=== PATIENT | male | born 1965 | race Two or more races ===

== ENCOUNTER 2018-04-06 12:15 | Inpatient (IN) | payer MEDICAID ==
[~2018-04-06] VITALS: Ht 172.7 cm; Wt 72.6 kg
--- NOTE | 2018-04-06 12:31 | Emergency Room Report ---
History of Present Illness General Chief Complaint: Altered Level of Consciousness Source: Medical Record Present Illness HPI This patient lives in SNF due to past CVA/hemiplegia and possibly TBI. Notes relate that patient is more agitated and has "exit-seeking behavior." Referred here. No trauma, no fever. Hx. limited due to prior stroke and language. However patient is not in any distress and is cooperative with phlebotomy, EKG. Allergies: Coded Allergies: No Known Allergies (Unverified , 04/06/18) Patient History Limited by: language barrier Nursing Documentation-H Hx Hypertension: Yes Hx Cerebrovascular Accident: Yes - traumatic brain injury Review of Systems Constitutional: Reports: no symptoms Eye: Reports: no symptoms ENT: Reports: no symptoms Respiratory: Reports: no symptoms Cardiovascular: Reports: no symptoms Gastrointestinal: Reports: no symptoms Genitourinary: Reports: no symptoms Musculoskeletal: Reports: no symptoms Skin: Reports: no symptoms Psychiatric: Reports: no symptoms Neurological: Reports: no symptoms Endocrine: Reports: no symptoms Hematologic/Lymphatic: Reports: no symptoms Allergic: Reports: no symptoms All Other Systems: limited Physical Exam Vital Signs Date Time Temp Pulse Resp B/P (MAP) Pulse Ox O2 Delivery O2 Flow Rate FiO2 04/06/18 12:06 97.6 76 16 187/100 98 Room Air 97.5 Sp02 EP Interpretation: reviewed, normal General Appearance: normal inspection, well appearing, no apparent distress, alert, GCS 15, non-toxic Head: normocephalic, atraumatic Eyes: bilateral eye normal inspection, bilateral eye PERRL, bilateral eye EOMI ENT: normal ENT inspection, hearing grossly normal, normal pharynx, no angioedema, normal voice, moist mucus membranes Neck: normal inspection, full range of motion, supple, no meningismus, no bony tend Respiratory: normal inspection, lungs clear, normal breath sounds, no rhonchi, no respiratory distress, no retraction, no accessory muscle use, no wheezing Cardiovascular #1: normal inspection, regular rate, rhythm, no edema Gastrointestinal: normal inspection, normal bowel sounds, non tender, soft, no mass, non-distended Musculoskeletal: gait/station normal, normal range of motion Neurologic: normal inspection, alert, oriented x3, responsive, other - left hemiplegia (chronic) Psychiatric: normal inspection, judgement/insight normal, memory normal Suicide Risk Assessment: Suicidal Ideation: No Had intent to initiate attempt: No Pt's plan for suicide attempt: No Has means to complete attempt: No Skin: normal inspection, normal color, no rash, warm/dry Medical Decision Making Reaction to Intervention: No change Diagnostic Impression: Primary Impression: Altered level of consciousness ER Course There is no acute abnorm on PE or vitals or labs. Pt. not uncomfortable. Pt. cooperative here. I think pt. may just be unhappy at [facility]. EKG Diagnostic Results Rate: normal Rhythm: NSR ST Segments: no acute changes Rhythm Strip Diag. Results Rhythm Strip Time: 14:37 EP Interpretation: yes Rhythm: NSR Chest X-Ray Diagnostic Results Chest X-Ray Diagnostic Results : Chest X-Ray Ordered: Yes # of Views/Limited/Complete: 1 View Indication: Chest Pain EP Interpretation: Yes PA Xray: Interpretation reviewed Interpretation: no consolidation, no effusion, no pneumothorax, no acute cardiopulmonary disease Impression: No acute disease Last Vital Signs Date Time Temp Pulse Resp B/P (MAP) Pulse Ox O2 Delivery O2 Flow Rate FiO2 04/06/18 12:06 97.6 76 16 187/100 98 Room Air 97.5 Disposition: HOME, SELF-CARE Condition: Stable Tariq Dao M.D. Apr 06, 2018 12:31
[2018-04-06 12:45] LABS: EOSINOPHILS % (AUTO) 3.1 % (0.0-3.0); HEMATOCRIT 38.6 % (42.0-52.0); HEMOGLOBIN 13.5 G/DL (14.2-18.0); LYMPHOCYTES % (AUTO) 22.9 % (20.0-45.0); MEAN CORPUSCULAR VOLUME 85 FL (80-99); MONOCYTES % (AUTO) 6.7 % (1.0-10.0); NEUTROPHILS % (AUTO) 66.3 % (45.0-75.0); PLATELET COUNT 300 K/UL (150-450); RED BLOOD COUNT 4.54 M/UL (4.70-6.10); RED CELL DISTRIBUTION WIDTH 10.8 % (11.6-14.8); WHITE BLOOD COUNT 7.2 K/UL (4.8-10.8)
[2018-04-06 12:58] LABS: ANION GAP 11 mmol/L (5-15); BLOOD UREA NITROGEN 18 mg/dL (7-18); CALCIUM 9.5 MG/DL (8.5-10.1); CARBON DIOXIDE 26 MMOL/L (21-32); CHLORIDE 103 MMOL/L (98-107); CREATININE 1.2 MG/DL (0.55-1.30); POTASSIUM 3.8 MMOL/L (3.5-5.1); SODIUM 140 MMOL/L (136-145)
--- NOTE | 2018-04-06 12:59 | Diagnostic Imaging Report ---
Indication: Pain Technique: XRAY Chest 1v Comparison: None Findings: Heart appears mildly enlarged however this may be exaggerated by low lung volumes and AP technique. Mediastinal contours are sharp. There is no definite focal airspace consolidation. Costophrenic sulci are sharp. No definite pneumothorax. No definite/displaced acute rib fracture identified. No acute osseous abnormality appreciated. IMPRESSION: Apparent cardiomegaly, possibly exaggerated by low lung volumes and AP technique. No focal airspace consolidation, pleural effusion or pneumothorax.
[2018-04-06 13:01] LABS: ALANINE AMINOTRANSFERASE 26 U/L (12-78); ALBUMIN 4.3 G/DL (3.4-5.0); ALBUMIN/GLOBULIN RATIO 1.1 (1.0-2.7); ALKALINE PHOSPHATASE 72 U/L (46-116); ASPARTATE AMINO TRANSFERASE 15 U/L (15-37); BILIRUBIN,TOTAL 0.5 MG/DL (0.2-1.0)
--- NOTE | 2018-04-06 13:20 | Diagnostic Imaging Report ---
Indication: Seizure Technique: Continuous helical CT scanning of the head was performed utilizing automated exposure control without intravenous contrast material. Axial and coronal reconstructions were obtained. Comparison: None CT dose: Total DLP 1903 mGycm; CTDI vol 0.2, 7 0.4, 28.2 mGy Findings: There is no acute intracranial hemorrhage, mass effect or cortical edema. There is encephalomalacia in the left calloway radiata/basal ganglia/insula and to a lesser extent left superior temporal lobe which is likely sequela of remote ischemia or trauma. The ventricles, cisterns and sulci are prominent consistent with mild atrophy. Visualized mastoid air cells and paranasal sinuses are unremarkable. No focal lesions of the bony calvarium or soft tissues of the scalp are seen. IMPRESSION: No evidence of acute intracranial hemorrhage, mass effect or cortical edema. Encephalomalacia centered in the left basal ganglia/calloway radiata likely related to chronic infarct. Correlate clinically. MRI may be obtained for more sensitive evaluation as clinically indicated. The CT scanner at [facility] is accredited by the [employer] and the scans are performed using protocols designed to limit radiation exposure to as low as reasonably achievable to attain images of sufficient resolution adequate for diagnostic evaluation.
[2018-04-06 13:49] VITALS: BP 164/96
[2018-04-06 16:24] VITALS: BP 180/94
[2018-04-06 18:04] VITALS: BP 154/96
[2018-04-06 19:41] LABS: APPEARANCE,URINE CLEAR; BILIRUBIN, URINE NEGATIVE (NEGATIVE); COLOR,URINE PALE YELLOW; GLUCOSE, URINE (UA) NEGATIVE (NEGATIVE); KETONES,URINE NEGATIVE (NEGATIVE); LEUKOCYTE ESTERASE ,URINE NEGATIVE (NEGATIVE); NITRITE,URINE NEGATIVE (NEGATIVE); PH,URINE 5 (4.5-8.0); PROTEIN,URINE 2+ (NEGATIVE); UROBILINOGEN,URINE NORMAL MG/DL (0.0-1.0)
[2018-04-06] MEDS ORDERED: ASPIRIN81 MG ORAL (19:51)
[2018-04-06] MEDS ORDERED: LABETALOL HCL300 MG ORAL (19:51)
[2018-04-06] MEDS ORDERED: MOM30 ML ORAL (19:51)
[2018-04-06] MEDS ORDERED: HYTRIN1 MG PO (19:51)
[2018-04-06] MEDS ORDERED: MULTI-DELYN237 ML ORAL (19:51)
[2018-04-06] MEDS ORDERED: TERAZOSIN HCL1 MG ORAL (19:51)
[2018-04-06] MEDS ORDERED: AMLODIPINE BESY10 MG ORAL (19:51)
[2018-04-06] MEDS ORDERED: ZANTAC150 MG ORAL (19:51)
[2018-04-06] MEDS ORDERED: LISINOPRIL20 MG ORAL (19:51)
[2018-04-06] MEDS ORDERED: ACETAMINOPHEN325 M1 ORAL (19:51)
[2018-04-06 20:00] VITALS: BP 176/106
[2018-04-06] MEDS ORDERED: Miralax 17gm pkt ORAL PRN (20:30)
[2018-04-06] MEDS ORDERED: dilTIAZem HCl 25mg/5ml Inj IV PRN (20:30)
[2018-04-06] MEDS ORDERED: Enalaprilat 2.5mg/2ml Inj IV PRN (20:30)
[2018-04-06] MEDS ORDERED: Nitroglycerin Subl 0.4mg tab SL PRN (20:30)
[2018-04-06] MEDS ORDERED: Labetalol 5mg/ml 20ml vial IV PRN ×2 (20:30→20:45)
[2018-04-06] MEDS ORDERED: Albuterol/Ipratropium 3ml neb HHN PRN (20:30)
--- NOTE | 2018-04-06 20:42 | Emergency Room Report ---
Physical Exam Vital Signs Date Time Temp Pulse Resp B/P (MAP) Pulse Ox O2 Delivery O2 Flow Rate FiO2 04/06/18 12:06 97.6 76 16 187/100 98 Room Air 97.5 Medical Decision Making Diagnostic Impression: Primary Impression: Altered level of consciousness Additional Impressions: FTT (failure to thrive) in adult Uncontrolled hypertension ER Course Patient initially seen and evaluated by Dr. Dao; please see her note for full history and physical During ED course patient's blood pressure was difficult to control. Patient's behavior is also difficult to control at the facility. Patient given clonidine here. Patient will be admitted to telemetry floor Patient will be admitted to Dr. Bond who accepted the patient Last Vital Signs Date Time Temp Pulse Resp B/P (MAP) Pulse Ox O2 Delivery O2 Flow Rate FiO2 04/06/18 20:14 Room Air 04/06/18 18:43 97.5 61 15 154/96 99 97.5 Status: improved Disposition: ADMITTED INPATIENT Condition: Serious Referrals: Emeka Bond DO (PCP) Patient Instructions: Altered Mental Status Wilder Fry MD Apr 06, 2018 20:42
[2018-04-06] MEDS: Labetalol 200mg tab ORAL SCH (21:59)
[2018-04-06] MEDS: Heparin 5000 units/ml inj SUBQ SCH (22:00)
[2018-04-06] MEDS ORDERED: HydrALAZINE 50mg tab ORAL SCH (22:00)
--- NOTE | 2018-04-06 22:37 | Consultation ---
History of Present Illness General Date patient seen: Apr 06, 2018 Time patient seen: 22:37 Chief Complaint: Altered Level of Consciousness Present Illness HPI 52 year old male with hx of psychiatric disorder, CVA, PEG, HTN, [facility] resident was transferred ER with CC of agitation and ALOC. Cardiology consulted to assist with blood pressure management. Allergies: Coded Allergies: No Known Allergies (Unverified , 04/06/18) Medication History Scheduled Amlodipine Besylate* (Amlodipine Besylate*), 10 MG ORAL DAILY, (Reported) Aspirin* (Aspirin*), 81 MG ORAL DAILY, (Reported) Labetalol Hcl* (Normodyne*), 600 MG ORAL BID, (Reported) Lisinopril (Lisinopril*), 20 MG ORAL DAILY, (Reported) Multivitamin Liquid* (Multi-Delyn*), 5 ML ORAL DAILY, (Reported) Ranitidine Hcl* (Zantac*), 150 MG ORAL Q12HR, (Reported) Terazosin HCl (Terazosin HCl), 1 MG PO DAILY, (Reported) Scheduled PRN Acetaminophen* (Acetaminophen 325MG Tablet*), 650 MG ORAL Q4H PRN for Mild Pain/ Temp > 100.5, (Reported) Magnesium Hydroxide (Milk of Magnesia), 30 ML ORAL HSPRN PRN for Constipation, ( Reported) Patient History Healthcare decision maker N Resuscitation status Full Code Advanced Directive on File Review of Systems Constitutional: Reports: no symptoms Eye: Reports: no symptoms ENT: Reports: no symptoms Respiratory: Reports: no symptoms Cardiovascular: Reports: no symptoms Gastrointestinal: Reports: no symptoms Genitourinary: Reports: no symptoms Musculoskeletal: Reports: no symptoms Skin: Reports: no symptoms Psychiatric: Reports: anxiety, emotional problems Neurological: Reports: no symptoms Endocrine: Reports: no symptoms Hematologic/Lymphatic: Reports: no symptoms Physical Exam General Appearance: no apparent distress, alert Lines, tubes and drains: peripheral HEENT: normocephalic, atraumatic Neck: non-tender, normal alignment, supple, normal inspection Respiratory/Chest: chest wall non-tender, lungs clear, normal breath sounds, no respiratory distress Cardiovascular/Chest: normal peripheral pulses, normal rate, regular rhythm Abdomen: normal bowel sounds, non tender Extremities: normal range of motion, non-tender Skin Exam: normal pigmentation Neurologic: supervisor cold rolling II-XII grossly normal, no motor/sensory deficits, abnormal gait Last 24 Hour Vital Signs Date Time Temp Pulse Resp B/P (MAP) Pulse Ox O2 Delivery O2 Flow Rate FiO2 04/06/18 21:59 176/106 04/06/18 21:59 66 176/106 04/06/18 20:14 Room Air 04/06/18 20:00 58 04/06/18 20:00 97.4 66 19 176/106 (129) 98 97.4 04/06/18 18:43 97.5 61 15 154/96 99 Room Air 97.5 04/06/18 18:04 97.5 61 15 154/96 99 Room Air 97.5 04/06/18 16:40 164/96 04/06/18 16:24 97.5 79 16 180/94 100 Room Air 97.5 04/06/18 13:49 97.5 72 16 164/96 99 Room Air 97.5 04/06/18 12:06 97.6 76 16 187/100 98 Room Air 97.5 Laboratory Tests Test 04/06/18 12:25 04/06/18 13:30 04/06/18 18:38 04/06/18 21:00 White Blood Count 7.2 K/UL (4.8-10.8) Red Blood Count 4.54 M/UL (4.70-6.10) L Hemoglobin 13.5 G/DL (14.2-18.0) L Hematocrit 38.6 % (42.0-52.0) L Mean Corpuscular Volume 85 FL (80-99) Mean Corpuscular Hemoglobin 29.6 PG (27.0-31.0) Mean Corpuscular Hemoglobin Concent 34.9 G/DL (32.0-36.0) Red Cell Distribution Width 10.8 % (11.6-14.8) L Platelet Count 300 K/UL (150-450) Mean Platelet Volume 5.7 FL (6.5-10.1) L Neutrophils (%) (Auto) 66.3 % (45.0-75.0) Lymphocytes (%) (Auto) 22.9 % (20.0-45.0) Monocytes (%) (Auto) 6.7 % (1.0-10.0) Eosinophils (%) (Auto) 3.1 % (0.0-3.0) H Basophils (%) (Auto) 1.0 % (0.0-2.0) Sodium Level 140 MMOL/L (136-145) Potassium Level 3.8 MMOL/L (3.5-5.1) Chloride Level 103 MMOL/L (98-107) Carbon Dioxide Level 26 MMOL/L (21-32) Anion Gap 11 mmol/L (5-15) Blood Urea Nitrogen 18 mg/dL (7-18) Creatinine 1.2 MG/DL (0.55-1.30) Estimat Glomerular Filtration Rate > 60 mL/min (>60) Glucose Level 153 MG/DL (74-106) H Calcium Level 9.5 MG/DL (8.5-10.1) Total Bilirubin 0.5 MG/DL (0.2-1.0) Aspartate Amino Transf (AST/SGOT) 15 U/L (15-37) Alanine Aminotransferase (ALT/SGPT) 26 U/L (12-78) Alkaline Phosphatase 72 U/L (46-116) Total Protein 8.1 G/DL (6.4-8.2) Albumin 4.3 G/DL (3.4-5.0) Globulin 3.8 g/dL Albumin/Globulin Ratio 1.1 (1.0-2.7) Prothrombin Time 10.1 SEC (9.30-11.50) Prothromb Time International Ratio 1.0 (0.9-1.1) Troponin I 0.017 ng/mL (0.000-0.056) 0.013 ng/mL (0.000-0.056) Urine Color Pale yellow Urine Appearance Clear Urine pH 5 (4.5-8.0) Urine Specific [place] 1.015 (1.005-1.035) Urine Protein 2+ (NEGATIVE) H Urine Glucose (UA) Negative (NEGATIVE) Urine Ketones Negative (NEGATIVE) Urine Blood Negative (NEGATIVE) Urine Nitrite Negative (NEGATIVE) Urine Bilirubin Negative (NEGATIVE) Urine Urobilinogen Normal MG/DL (0.0-1.0) Urine Leukocyte Esterase Negative (NEGATIVE) Urine RBC 0-2 /HPF (0 - 0) H Urine WBC 0 /HPF (0 - 0) Urine Squamous Epithelial Cells None /LPF (NONE/OCC) Urine Amorphous Sediment Few /LPF (NONE) H Urine Bacteria Occasional /HPF (NONE) Height (Feet): 5 Height (Inches): 8.00 Weight (Pounds): 160 Medications Current Medications Medications (Trade) Dose Ordered Sig/Fatou Route PRN Reason Start Time Stop Time Status Last Admin Dose Admin Acetaminophen (Tylenol) 650 mg Q4H PRN ORAL FEVER 04/06/18 20:30 05/06/18 20:29 Albuterol/ Ipratropium (Albuterol/ Ipratropium) 3 ml Q4H PRN HHN Shortness of Breath 04/06/18 20:30 04/11/18 20:29 Amlodipine Besylate (Norvasc) 10 mg DAILY ORAL 04/07/18 09:00 05/07/18 08:59 Diltiazem HCl (Cardizem) 10 mg Q1H PRN IV heart rate more than 120 04/06/18 20:30 05/06/18 20:29 Enalaprilat (Vasotec) 2.5 mg Q6H PRN IV sbp more than 160 04/06/18 20:30 05/06/18 20:29 Heparin Sodium (Porcine) (Heparin 5000 units/ml) 5,000 units EVERY 12 HOURS SUBQ 04/06/18 21:00 05/06/18 20:59 04/06/18 22:00 Hydralazine HCl (Apresoline) 50 mg Q8HR ORAL 04/06/18 22:00 05/06/18 21:59 04/06/18 21:59 Labetalol HCl (Normodyne) 20 mg Q1H PRN IV sbp more than 160 04/06/18 20:45 05/06/18 20:29 Labetalol HCl (Normodyne) 600 mg Q12H ORAL 04/06/18 21:00 05/06/18 20:59 04/06/18 21:59 Lisinopril (Prinivil) 20 mg DAILY ORAL 04/07/18 09:00 05/07/18 08:59 Nitroglycerin (Ntg) 0.4 mg Q5M PRN SL Prn Chest Pain 04/06/18 20:30 05/06/18 20:29 Ondansetron HCl (Zofran) 4 mg Q6H PRN IVP Nausea & Vomiting 04/06/18 20:30 05/06/18 20:29 Pantoprazole (Protonix) 40 mg DAILY ORAL 04/07/18 09:00 05/07/18 08:59 Polyethylene Glycol (Miralax) 17 gm DAILYPRN PRN ORAL Constipation 04/06/18 20:30 05/06/18 20:29 Temazepam (Restoril) 15 mg HSPRN PRN ORAL Insomnia 04/06/18 20:30 04/13/18 20:29 Terazosin HCl (Hytrin) 1 mg DAILY ORAL 04/07/18 09:00 05/07/18 08:59 Assessment/Plan Status: stable Assessment/Plan Assessment: (1) History of CVA (cerebrovascular accident) (2) Feeding by G-tube (3) Psychiatric disorder (4) Hypertensive urgency Plan: 1) BP controlled on Norvasc, Lisinopril, Hydralazine, Labetaolol, terazosin 2) Psych consult 3) Ok to transfer to med surg 4) Cardiac diet Joshua Zimmer M.D. Apr 06, 2018 22:37
[2018-04-07] VITALS: BP 149/88
[2018-04-07 04:00] VITALS: BP 149/95
[2018-04-07] MEDS: HydrALAZINE 50mg tab ORAL SCH ×3 (05:37→22:33)
[2018-04-07 06:24] LABS: BASOPHILS % (AUTO) 0.9 % (0.0-2.0); HEMATOCRIT 39.4 % (42.0-52.0); HEMOGLOBIN 13.6 G/DL (14.2-18.0); LYMPHOCYTES % (AUTO) 27.3 % (20.0-45.0); MEAN CORPUSCULAR VOLUME 85 FL (80-99); MONOCYTES % (AUTO) 6.7 % (1.0-10.0); NEUTROPHILS % (AUTO) 62.1 % (45.0-75.0); PLATELET COUNT 308 K/UL (150-450); RED BLOOD COUNT 4.64 M/UL (4.70-6.10); WHITE BLOOD COUNT 7.3 K/UL (4.8-10.8)
[2018-04-07 07:28] LABS: CHOLESTEROL 238 MG/DL (< 200); HDL CHOLESTEROL 54 MG/DL (40-60); TRIGLYCERIDES 138 MG/DL (30-150)
[2018-04-07 07:59] VITALS: BP 124/71
[2018-04-07] MEDS: Heparin 5000 units/ml inj SUBQ SCH ×3 (08:12→22:15)
[2018-04-07] MEDS: Labetalol 200mg tab ORAL SCH ×2 (08:14→21:35)
[2018-04-07] MEDS ORDERED: Terazosin 1mg cap ORAL SCH (09:00)
[2018-04-07] MEDS ORDERED: Lisinopril 20mg tab ORAL SCH ×2 (09:00)
[2018-04-07 12:00] VITALS: BP 122/71
--- NOTE | 2018-04-07 12:04 | Consultation ---
History of Present Illness General Date patient seen: Apr 07, 2018 Chief Complaint: Altered Level of Consciousness Present Illness HPI 52 year old male with hx of psychiatric disorder, CVA, PEG, [place] resident was [place] [facility] [place] with CC of agitation and ALOC. His BP was elevated and uncontrolled, he is admitted to Telemetry for further treatment. Allergies: Coded Allergies: No Known Allergies (Unverified , 04/06/18) Medication History Scheduled Amlodipine Besylate* (Amlodipine Besylate*), 10 MG ORAL DAILY, (Reported) Aspirin* (Aspirin*), 81 MG ORAL DAILY, (Reported) Labetalol Hcl* (Normodyne*), 600 MG ORAL BID, (Reported) Lisinopril (Lisinopril*), 20 MG ORAL DAILY, (Reported) Multivitamin Liquid* (Multi-Delyn*), 5 ML ORAL DAILY, (Reported) Ranitidine Hcl* (Zantac*), 150 MG ORAL Q12HR, (Reported) Terazosin HCl (Terazosin HCl), 1 MG PO DAILY, (Reported) Scheduled PRN Acetaminophen* (Acetaminophen 325MG Tablet*), 650 MG ORAL Q4H PRN for Mild Pain/ Temp > 100.5, (Reported) Magnesium Hydroxide (Milk of Magnesia), 30 ML ORAL HSPRN PRN for Constipation, ( Reported) Patient History Healthcare decision maker N Resuscitation status Full Code Advanced Directive on File Past Medical/Surgical History Past Medical/Surgical History: (1) History of CVA (cerebrovascular accident) (2) Feeding by G-tube (3) Psychiatric disorder Review of Systems All Other Systems: negative except mentioned in HPI Physical Exam General Appearance: WD/WN, no apparent distress Lines, tubes and drains: peripheral HEENT: normocephalic Neck: non-tender, normal alignment Respiratory/Chest: chest wall non-tender, lungs clear Cardiovascular/Chest: normal peripheral pulses, normal rate Abdomen: normal bowel sounds, non tender Genitourinary/Rectal: normal genital exam Extremities: normal range of motion Last 24 Hour Vital Signs Date Time Temp Pulse Resp B/P (MAP) Pulse Ox O2 Delivery O2 Flow Rate FiO2 04/07/18 08:14 82 124/71 04/07/18 08:10 82 124/71 04/07/18 08:09 124/71 04/07/18 08:00 79 04/07/18 07:59 98.1 82 16 124/71 (88) 98 98.1 04/07/18 07:33 Room Air 04/07/18 07:31 67 18 Room Air 21 04/07/18 05:37 149/95 04/07/18 04:00 66 04/07/18 04:00 98.1 73 16 149/95 (113) 97 98.1 04/07/18 00:00 97.6 75 20 149/88 (108) 97 97.6 04/07/18 00:00 65 04/06/18 21:59 176/106 04/06/18 21:59 66 176/106 04/06/18 20:14 Room Air 04/06/18 20:00 58 04/06/18 20:00 97.4 66 19 176/106 (129) 98 97.4 04/06/18 18:43 97.5 61 15 154/96 99 Room Air 97.5 04/06/18 18:04 97.5 61 15 154/96 99 Room Air 97.5 04/06/18 16:40 164/96 04/06/18 16:24 97.5 79 16 180/94 100 Room Air 97.5 04/06/18 13:49 97.5 72 16 164/96 99 Room Air 97.5 04/06/18 12:06 97.6 76 16 187/100 98 Room Air 97.5 Intake and Output 04/06/18 04/07/18 19:00 07:00 Intake Total 120 ml Balance 120 ml Intake Oral 120 ml # Voids 1 Laboratory Tests Test 04/06/18 12:25 04/06/18 13:30 04/06/18 18:38 04/06/18 21:00 White Blood Count 7.2 K/UL (4.8-10.8) Red Blood Count 4.54 M/UL (4.70-6.10) L Hemoglobin 13.5 G/DL (14.2-18.0) L Hematocrit 38.6 % (42.0-52.0) L Mean Corpuscular Volume 85 FL (80-99) Mean Corpuscular Hemoglobin 29.6 PG (27.0-31.0) Mean Corpuscular Hemoglobin Concent 34.9 G/DL (32.0-36.0) Red Cell Distribution Width 10.8 % (11.6-14.8) L Platelet Count 300 K/UL (150-450) Mean Platelet Volume 5.7 FL (6.5-10.1) L Neutrophils (%) (Auto) 66.3 % (45.0-75.0) Lymphocytes (%) (Auto) 22.9 % (20.0-45.0) Monocytes (%) (Auto) 6.7 % (1.0-10.0) Eosinophils (%) (Auto) 3.1 % (0.0-3.0) H Basophils (%) (Auto) 1.0 % (0.0-2.0) Sodium Level 140 MMOL/L (136-145) Potassium Level 3.8 MMOL/L (3.5-5.1) Chloride Level 103 MMOL/L (98-107) Carbon Dioxide Level 26 MMOL/L (21-32) Anion Gap 11 mmol/L (5-15) Blood Urea Nitrogen 18 mg/dL (7-18) Creatinine 1.2 MG/DL (0.55-1.30) Estimat Glomerular Filtration Rate > 60 mL/min (>60) Glucose Level 153 MG/DL (74-106) H Calcium Level 9.5 MG/DL (8.5-10.1) Total Bilirubin 0.5 MG/DL (0.2-1.0) Aspartate Amino Transf (AST/SGOT) 15 U/L (15-37) Alanine Aminotransferase (ALT/SGPT) 26 U/L (12-78) Alkaline Phosphatase 72 U/L (46-116) Total Protein 8.1 G/DL (6.4-8.2) Albumin 4.3 G/DL (3.4-5.0) Globulin 3.8 g/dL Albumin/Globulin Ratio 1.1 (1.0-2.7) Prothrombin Time 10.1 SEC (9.30-11.50) Prothromb Time International Ratio 1.0 (0.9-1.1) Troponin I 0.017 ng/mL (0.000-0.056) 0.013 ng/mL (0.000-0.056) Urine Color Pale yellow Urine Appearance Clear Urine pH 5 (4.5-8.0) Urine Specific [place] 1.015 (1.005-1.035) Urine Protein 2+ (NEGATIVE) H Urine Glucose (UA) Negative (NEGATIVE) Urine Ketones Negative (NEGATIVE) Urine Blood Negative (NEGATIVE) Urine Nitrite Negative (NEGATIVE) Urine Bilirubin Negative (NEGATIVE) Urine Urobilinogen Normal MG/DL (0.0-1.0) Urine Leukocyte Esterase Negative (NEGATIVE) Urine RBC 0-2 /HPF (0 - 0) H Urine WBC 0 /HPF (0 - 0) Urine Squamous Epithelial Cells None /LPF (NONE/OCC) Urine Amorphous Sediment Few /LPF (NONE) H Urine Bacteria Occasional /HPF (NONE) Test 04/07/18 05:30 White Blood Count 7.3 K/UL (4.8-10.8) Red Blood Count 4.64 M/UL (4.70-6.10) L Hemoglobin 13.6 G/DL (14.2-18.0) L Hematocrit 39.4 % (42.0-52.0) L Mean Corpuscular Volume 85 FL (80-99) Mean Corpuscular Hemoglobin 29.3 PG (27.0-31.0) Mean Corpuscular Hemoglobin Concent 34.5 G/DL (32.0-36.0) Red Cell Distribution Width 11.0 % (11.6-14.8) L Platelet Count 308 K/UL (150-450) Mean Platelet Volume 6.0 FL (6.5-10.1) L Neutrophils (%) (Auto) 62.1 % (45.0-75.0) Lymphocytes (%) (Auto) 27.3 % (20.0-45.0) Monocytes (%) (Auto) 6.7 % (1.0-10.0) Eosinophils (%) (Auto) 3.0 % (0.0-3.0) Basophils (%) (Auto) 0.9 % (0.0-2.0) Prothrombin Time 10.1 SEC (9.30-11.50) Prothromb Time International Ratio 1.0 (0.9-1.1) Activated Partial Thromboplast Time 28 SEC (23-33) C-Reactive Protein, Quantitative < 0.4 mg/dL (0.00-0.90) Triglycerides Level 138 MG/DL (30-150) Cholesterol Level 238 MG/DL (< 200) H LDL Cholesterol 157 mg/dL (<100) H HDL Cholesterol 54 MG/DL (40-60) Cholesterol/HDL Ratio 4.4 (3.3-4.4) Thyroid Stimulating Hormone (TSH) 1.006 uiU/mL (0.358-3.740) Height (Feet): 5 Height (Inches): 8.00 Weight (Pounds): 160 Medications Current Medications Medications (Trade) Dose Ordered Sig/Fatou Route PRN Reason Start Time Stop Time Status Last Admin Dose Admin Acetaminophen (Tylenol) 650 mg Q4H PRN ORAL FEVER 04/06/18 20:30 05/06/18 20:29 Albuterol/ Ipratropium (Albuterol/ Ipratropium) 3 ml Q4H PRN HHN Shortness of Breath 04/06/18 20:30 04/11/18 20:29 Amlodipine Besylate (Norvasc) 10 mg DAILY ORAL 04/07/18 09:00 05/07/18 08:59 04/07/18 08:10 Diltiazem HCl (Cardizem) 10 mg Q1H PRN IV heart rate more than 120 04/06/18 20:30 05/06/18 20:29 Enalaprilat (Vasotec) 2.5 mg Q6H PRN IV sbp more than 160 04/06/18 20:30 05/06/18 20:29 Heparin Sodium (Porcine) (Heparin 5000 units/ml) 5,000 units EVERY 12 HOURS SUBQ 04/06/18 21:00 05/06/18 20:59 04/07/18 08:12 Hydralazine HCl (Apresoline) 100 mg Q8HR ORAL 04/07/18 06:00 05/06/18 21:59 04/07/18 05:37 Labetalol HCl (Normodyne) 20 mg Q1H PRN IV sbp more than 160 04/06/18 20:45 05/06/18 20:29 Labetalol HCl (Normodyne) 600 mg Q12H ORAL 04/06/18 21:00 05/06/18 20:59 04/07/18 08:14 Lisinopril (Prinivil) 40 mg DAILY ORAL 04/07/18 09:00 05/07/18 08:59 04/07/18 08:09 Nitroglycerin (Ntg) 0.4 mg Q5M PRN SL Prn Chest Pain 04/06/18 20:30 05/06/18 20:29 Ondansetron HCl (Zofran) 4 mg Q6H PRN IVP Nausea & Vomiting 04/06/18 20:30 05/06/18 20:29 Pantoprazole (Protonix) 40 mg DAILY ORAL 04/07/18 09:00 05/07/18 08:59 04/07/18 08:10 Polyethylene Glycol (Miralax) 17 gm DAILYPRN PRN ORAL Constipation 04/06/18 20:30 05/06/18 20:29 Temazepam (Restoril) 15 mg HSPRN PRN ORAL Insomnia 04/06/18 20:30 04/13/18 20:29 Terazosin HCl (Hytrin) 1 mg DAILY ORAL 04/07/18 09:00 05/07/18 08:59 04/07/18 08:10 Assessment/Plan Problem List: (1) Uncontrolled hypertension ICD Codes: I10 - Essential (primary) hypertension SNOMED: 78714846, 48112706 (2) Psychiatric disorder ICD Codes: F99 - Mental disorder, not otherwise specified SNOMED: 11212666, 247295272 (3) Altered level of consciousness ICD Codes: R40.4 - Transient alteration of awareness SNOMED: 9516556 (4) History of CVA (cerebrovascular accident) ICD Codes: Z86.73 - Personal history of transient ischemic attack (TIA), and cerebral infarction without residual deficits SNOMED: 717338985 (5) Feeding by G-tube ICD Codes: Z93.1 - Gastrostomy status SNOMED: 494880202, 317745728 Assessment/Plan telemetry monitoring bp control psych to see swallow evaluation dvt prophylaxis. Justine Lopez MD Apr 07, 2018 12:04
--- NOTE | 2018-04-07 13:04 | Cardiology Progress Note ---
Assessment/Plan Status: stable Assessment/Plan Assessment: (1) History of CVA (cerebrovascular accident) (2) Feeding by G-tube (3) Psychiatric disorder (4) Hypertensive urgency Plan: 1) BP controlled on Norvasc, Lisinopril, Hydralazine, Labetaolol, terazosin 2) Psych consult 3) Ok to transfer to med surg 4) Cardiac diet Subjective Cardiovascular: Reports: no symptoms Respiratory: Reports: no symptoms Gastrointestinal/Abdominal: Reports: no symptoms Genitourinary: Reports: no symptoms Subjective No acute events, BP controlled, no chest pain/SOB, vitals stable Objective Last 24 Hour Vital Signs Date Time Temp Pulse Resp B/P (MAP) Pulse Ox O2 Delivery O2 Flow Rate FiO2 04/07/18 12:00 97.2 77 18 122/71 (88) 96 97.2 04/07/18 08:14 82 124/71 04/07/18 08:10 82 124/71 04/07/18 08:09 124/71 04/07/18 08:00 79 04/07/18 07:59 98.1 82 16 124/71 (88) 98 98.1 04/07/18 07:33 Room Air 04/07/18 07:31 67 18 Room Air 21 04/07/18 05:37 149/95 04/07/18 04:00 66 04/07/18 04:00 98.1 73 16 149/95 (113) 97 98.1 04/07/18 00:00 97.6 75 20 149/88 (108) 97 97.6 04/07/18 00:00 65 04/06/18 21:59 176/106 04/06/18 21:59 66 176/106 04/06/18 20:14 Room Air 04/06/18 20:00 58 04/06/18 20:00 97.4 66 19 176/106 (129) 98 97.4 04/06/18 18:43 97.5 61 15 154/96 99 Room Air 97.5 04/06/18 18:04 97.5 61 15 154/96 99 Room Air 97.5 04/06/18 16:40 164/96 04/06/18 16:24 97.5 79 16 180/94 100 Room Air 97.5 04/06/18 13:49 97.5 72 16 164/96 99 Room Air 97.5 General Appearance: no apparent distress, alert EENT: PERRL/EOMI, normal ENT inspection Neck: non-tender, normal alignment, supple, normal inspection, no JVD Rhythm: NSR Cardiovascular: normal peripheral pulses, normal rate, regular rhythm Respiratory/Chest: chest wall non-tender, lungs clear Abdomen: normal bowel sounds, non tender Extremities: normal range of motion, non-tender 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 normal, no motor/sensory deficits Intake and Output 04/06/18 04/07/18 19:00 07:00 Intake Total 120 ml Balance 120 ml Intake Oral 120 ml # Voids 1 Laboratory Tests Test 04/06/18 13:30 04/06/18 18:38 04/06/18 21:00 04/07/18 05:30 Prothrombin Time 10.1 SEC (9.30-11.50) 10.1 SEC (9.30-11.50) Prothromb Time International Ratio 1.0 (0.9-1.1) 1.0 (0.9-1.1) Troponin I 0.017 ng/mL (0.000-0.056) 0.013 ng/mL (0.000-0.056) Urine Color Pale yellow Urine Appearance Clear Urine pH 5 (4.5-8.0) Urine Specific [place] 1.015 (1.005-1.035) Urine Protein 2+ (NEGATIVE) H Urine Glucose (UA) Negative (NEGATIVE) Urine Ketones Negative (NEGATIVE) Urine Blood Negative (NEGATIVE) Urine Nitrite Negative (NEGATIVE) Urine Bilirubin Negative (NEGATIVE) Urine Urobilinogen Normal MG/DL (0.0-1.0) Urine Leukocyte Esterase Negative (NEGATIVE) Urine RBC 0-2 /HPF (0 - 0) H Urine WBC 0 /HPF (0 - 0) Urine Squamous Epithelial Cells None /LPF (NONE/OCC) Urine Amorphous Sediment Few /LPF (NONE) H Urine Bacteria Occasional /HPF (NONE) White Blood Count 7.3 K/UL (4.8-10.8) Red Blood Count 4.64 M/UL (4.70-6.10) L Hemoglobin 13.6 G/DL (14.2-18.0) L Hematocrit 39.4 % (42.0-52.0) L Mean Corpuscular Volume 85 FL (80-99) Mean Corpuscular Hemoglobin 29.3 PG (27.0-31.0) Mean Corpuscular Hemoglobin Concent 34.5 G/DL (32.0-36.0) Red Cell Distribution Width 11.0 % (11.6-14.8) L Platelet Count 308 K/UL (150-450) Mean Platelet Volume 6.0 FL (6.5-10.1) L Neutrophils (%) (Auto) 62.1 % (45.0-75.0) Lymphocytes (%) (Auto) 27.3 % (20.0-45.0) Monocytes (%) (Auto) 6.7 % (1.0-10.0) Eosinophils (%) (Auto) 3.0 % (0.0-3.0) Basophils (%) (Auto) 0.9 % (0.0-2.0) Activated Partial Thromboplast Time 28 SEC (23-33) C-Reactive Protein, Quantitative < 0.4 mg/dL (0.00-0.90) Triglycerides Level 138 MG/DL (30-150) Cholesterol Level 238 MG/DL (< 200) H LDL Cholesterol 157 mg/dL (<100) H HDL Cholesterol 54 MG/DL (40-60) Cholesterol/HDL Ratio 4.4 (3.3-4.4) Thyroid Stimulating Hormone (TSH) 1.006 uiU/mL (0.358-3.740) Joshua iZmmer M.D. Apr 07, 2018 13:04
[2018-04-07 16:00] VITALS: BP 104/65
[2018-04-07 20:00] VITALS: BP 126/83
[2018-04-07] MEDS ORDERED: Nitroglycerin Subl 0.4mg tab SL PRN (22:15)
[2018-04-07] MEDS ORDERED: dilTIAZem HCl 25mg/5ml Inj IV PRN (22:30)
[2018-04-07] MEDS ORDERED: Labetalol 5mg/ml 20ml vial IV PRN (22:45)
--- NOTE | 2018-04-07 22:45 | History and Physical Report ---
DATE OF ADMISSION: 04/06/2018 TIME SEEN: 1 p.m. CONSULTANTS: 1. Justine Lopez M.D. 2. . 3. London Snider M.D. CHIEF COMPLAINT: Altered mental status, failure to thrive, agitation, hypertensive urgency, psych history. BRIEF HISTORY: This 52-year-old male from [facility] presented with the above-mentioned diagnoses. Blood pressure was quite elevated 200/110. The patient came to [facility], diagnosed the above, admitted to telemetry for further care. Currently, calm in bed, slightly confused, not talking much. REVIEW OF SYSTEMS: Unavailable. PAST MEDICAL HISTORY: Hypertension, agitation, encephalopathy, CVA, failure to thrive. PAST SURGICAL HISTORY: None. MEDICATIONS: Norvasc, Hytrin, Protonix, Prinivil, Apresoline, Normodyne, heparin, albuterol, enalapril, , Zofran. ALLERGIES: Denies. SOCIAL HISTORY: No smoking. Positive alcohol. No intravenous drug abuse. FAMILY HISTORY: Noncontributory. OBJECTIVE: GENERAL: Calm in bed, confused, not talking much. VITAL SIGNS: Temperature is 97 degrees, pulse 77, respiratory rate 18, blood pressure 122/71. CARDIOVASCULAR: No murmur. LUNGS: Distant and clear. ABDOMEN: Bowel sounds positive. Nontender and nondistented EXTREMITIES: No cyanosis, clubbing, or edema. NEURO: The patient moves all extremities, slightly weak. LABORATORY DATA: Hemoglobin 13.6 otherwise CBC is normal. BMP show glucose is 153 and cholesterol 237. Troponin 0.017 and 0.013. INR is 1.0 and PTT 28. Urinalysis is 2+ protein. ASSESSMENT: 1. Altered mental status. 2. Failure to thrive. 3. Agitation. 4. CVA. 5. Hypertensive urgency. 6. Diabetes. 7. Encephalopathy. 8. Psych history. PLAN: 1. OT/PT. 2. Dietary evaluation. 3. CBC and BMP in morning. 4. Blood pressure and pain control. 5. Psychiatric treatment. 6. Transfer to psych if cleared. 7. We will continue to follow the patient. Emeka Bond D.O. DR: Catrina JOB#: [id number] CC:
[2018-04-08] VITALS: BP 127/78
[2018-04-08] MEDS ORDERED: Albuterol/Ipratropium 3ml neb HHN PRN (00:30)
[2018-04-08] MEDS ORDERED: Enalaprilat 2.5mg/2ml Inj IV PRN (02:30)
[2018-04-08 04:00] VITALS: BP 130/70
[2018-04-08] MEDS: HydrALAZINE 50mg tab ORAL SCH ×4 (05:33→21:38)
[2018-04-08 08:21] VITALS: BP 110/63
[2018-04-08] MEDS: Heparin 5000 units/ml inj SUBQ SCH ×2 (08:23→21:38)
[2018-04-08] MEDS: Lisinopril 20mg tab ORAL SCH (08:24)
[2018-04-08] MEDS: Terazosin 1mg cap ORAL SCH (08:24)
[2018-04-08] MEDS: Labetalol 200mg tab ORAL SCH ×2 (08:24→21:36)
--- NOTE | 2018-04-08 10:44 | General Progress Note ---
Assessment/Plan Problem List: (1) Altered mental status ICD Codes: R41.82 - Altered mental status, unspecified SNOMED: 474552156 (2) FTT (failure to thrive) in adult ICD Codes: R62.7 - Adult failure to thrive SNOMED: 890386943 (3) Psychiatric disorder ICD Codes: F99 - Mental disorder, not otherwise specified SNOMED: 25838666, 739447389 (4) History of CVA (cerebrovascular accident) ICD Codes: Z86.73 - Personal history of transient ischemic attack (TIA), and cerebral infarction without residual deficits SNOMED: 711132407 (5) Uncontrolled hypertension ICD Codes: I10 - Essential (primary) hypertension SNOMED: 12725869, 93569493 Status: stable, progressing Assessment/Plan ot pt diet bp bs control cbc bmp am psyc transfer Subjective Constitutional: Reports: weakness Allergies: Coded Allergies: No Known Allergies (Unverified , 04/06/18) All Systems: reviewed and negative except above Subjective confused in bed Objective Last 24 Hour Vital Signs Date Time Temp Pulse Resp B/P (MAP) Pulse Ox O2 Delivery O2 Flow Rate FiO2 04/08/18 08:24 110/63 04/08/18 08:24 72 110/63 04/08/18 08:24 72 110/63 04/08/18 08:21 97.0 72 18 110/63 (79) 97 97.0 04/08/18 05:33 128/73 04/08/18 04:00 97.2 77 18 130/70 (90) 97 97.2 04/08/18 00:00 97.1 74 17 127/78 (94) 98 97.1 04/07/18 22:33 138/86 04/07/18 21:35 71 126/83 04/07/18 21:00 Room Air 04/07/18 20:00 98.1 71 20 126/83 (97) 97 98.1 04/07/18 20:00 73 04/07/18 19:30 70 18 Room Air 21 04/07/18 16:00 69 04/07/18 16:00 98.1 79 20 104/65 (78) 97 98.1 04/07/18 13:28 122/71 04/07/18 12:00 74 04/07/18 12:00 97.2 77 18 122/71 (88) 96 97.2 Intake and Output 04/07/18 04/08/18 19:00 07:00 Intake Total 720 ml 360 ml Balance 720 ml 360 ml Intake Oral 720 ml 360 ml # Voids 2 2 Laboratory Tests 04/07/18 20:25: Troponin I 0.002 Height (Feet): 5 Height (Inches): 8.00 Weight (Pounds): 160 General Appearance: lethargic EENT: normal ENT inspection Neck: normal alignment Cardiovascular: normal peripheral pulses, normal rate, regular rhythm Respiratory/Chest: chest wall non-tender, lungs clear, normal breath sounds Abdomen: normal bowel sounds, non tender, soft Extremities: normal inspection Edema: no edema noted Arm (L), no edema noted Arm (R), no edema noted Leg (L), no edema noted Leg (R), no edema noted Pedal (L), no edema noted Pedal (R), no edema noted Generalized Neurologic: motor weakness Skin: normal pigmentation, warm/dry Emeka Bond DO Apr 08, 2018 10:44
--- NOTE | 2018-04-08 11:27 | Pulmonology Progress Note ---
Assessment/Plan Problems: (1) Uncontrolled hypertension (2) Psychiatric disorder (3) Altered level of consciousness (4) History of CVA (cerebrovascular accident) (5) Feeding by G-tube Assessment/Plan doing better bp better controlled tolerating feeding dc planning Subjective ROS Limited/Unobtainable: No Constitutional: Reports: no symptoms Respiratory: Reports: no symptoms Allergies: Coded Allergies: No Known Allergies (Unverified , 04/06/18) Objective Last 24 Hour Vital Signs Date Time Temp Pulse Resp B/P (MAP) Pulse Ox O2 Delivery O2 Flow Rate FiO2 04/08/18 11:22 75 20 Room Air 21 04/08/18 08:24 110/63 04/08/18 08:24 72 110/63 04/08/18 08:24 72 110/63 04/08/18 08:21 97.0 72 18 110/63 (79) 97 97.0 04/08/18 05:33 128/73 04/08/18 04:00 97.2 77 18 130/70 (90) 97 97.2 04/08/18 00:00 97.1 74 17 127/78 (94) 98 97.1 04/07/18 22:33 138/86 04/07/18 21:35 71 126/83 04/07/18 21:00 Room Air 04/07/18 20:00 98.1 71 20 126/83 (97) 97 98.1 04/07/18 20:00 73 04/07/18 19:30 70 18 Room Air 21 04/07/18 16:00 69 04/07/18 16:00 98.1 79 20 104/65 (78) 97 98.1 04/07/18 13:28 122/71 04/07/18 12:00 74 04/07/18 12:00 97.2 77 18 122/71 (88) 96 97.2 Intake and Output 04/07/18 04/08/18 19:00 07:00 Intake Total 720 ml 360 ml Balance 720 ml 360 ml Intake Oral 720 ml 360 ml # Voids 2 2 General Appearance: WD/WN HEENT: normocephalic, atraumatic Respiratory/Chest: chest wall non-tender, lungs clear, normal breath sounds Cardiovascular: normal peripheral pulses, normal rate, regular rhythm Abdomen: normal bowel sounds, soft, non tender Genitourinary: normal external genitalia Extremities: no clubbing 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 Complete 04/06/18 19:08 Rectum VRE Culture - Final NO VANCOMYCIN RESISTANT ENTEROCOCCUS ... Complete 04/06/18 19:08 Rectum - Final NO CARBAPENEM-RESISTANT ENTEROBACTERI... Complete Laboratory Tests 04/07/18 20:25: Troponin I 0.002 Current Medications Medications (Trade) Dose Ordered Sig/Fatou Route PRN Reason Start Time Stop Time Status Last Admin Dose Admin Acetaminophen (Tylenol) 650 mg Q4H PRN ORAL FEVER 04/08/18 00:30 05/06/18 20:29 Albuterol/ Ipratropium (Albuterol/ Ipratropium) 3 ml Q4H PRN HHN Shortness of Breath 04/08/18 00:30 04/11/18 20:29 Amlodipine Besylate (Norvasc) 10 mg DAILY ORAL 04/08/18 09:00 05/07/18 08:59 Heparin Sodium (Porcine) (Heparin 5000 units/ml) 5,000 units EVERY 12 HOURS SUBQ 04/07/18 22:15 05/06/18 20:59 04/08/18 08:23 Hydralazine HCl (Apresoline) 100 mg Q8HR ORAL 04/07/18 22:15 05/06/18 21:59 04/08/18 05:33 Labetalol HCl (Normodyne) 600 mg Q12H ORAL 04/08/18 09:00 05/06/18 20:59 Lisinopril (Prinivil) 40 mg DAILY ORAL 04/08/18 09:00 05/07/18 08:59 Nitroglycerin (Ntg) 0.4 mg Q5M PRN SL Prn Chest Pain 04/07/18 22:15 05/06/18 20:29 Ondansetron HCl (Zofran) 4 mg Q6H PRN IVP Nausea & Vomiting 04/08/18 02:30 05/06/18 20:29 Pantoprazole (Protonix) 40 mg DAILY ORAL 04/08/18 09:00 05/07/18 08:59 04/08/18 08:20 Polyethylene Glycol (Miralax) 17 gm DAILYPRN PRN ORAL Constipation 04/08/18 20:30 05/06/18 20:29 Temazepam (Restoril) 15 mg HSPRN PRN ORAL Insomnia 04/08/18 20:30 04/13/18 20:29 Terazosin HCl (Hytrin) 1 mg DAILY ORAL 04/08/18 09:00 05/07/18 08:59 Justine Lopez MD Apr 08, 2018 11:27
[2018-04-08 11:40] VITALS: BP 130/70
--- NOTE | 2018-04-08 12:33 | Cardiology Progress Note ---
Assessment/Plan Status: stable, progressing Assessment/Plan Assessment: (1) History of CVA (cerebrovascular accident) (2) Feeding by G-tube (3) Psychiatric disorder (4) Hypertensive urgency Plan: 1) BP controlled on Norvasc, Lisinopril, Hydralazine, Labetaolol, terazosin 2) Psych consult 3) Start lipitor 4) Cardiac diet 5) Ok to discharge Subjective Cardiovascular: Reports: no symptoms Respiratory: Reports: no symptoms Gastrointestinal/Abdominal: Reports: no symptoms Genitourinary: Reports: no symptoms Subjective No acute events, BP controlled, no chest pain/SOB, vitals stable, tolerating PO Lipid panel LDL elevated. Objective Last 24 Hour Vital Signs Date Time Temp Pulse Resp B/P (MAP) Pulse Ox O2 Delivery O2 Flow Rate FiO2 04/08/18 11:40 97.0 74 18 130/70 (90) 97 97.0 04/08/18 11:22 75 20 Room Air 21 04/08/18 08:24 110/63 04/08/18 08:24 72 110/63 04/08/18 08:24 72 110/63 04/08/18 08:21 97.0 72 18 110/63 (79) 97 97.0 04/08/18 05:33 128/73 04/08/18 04:00 97.2 77 18 130/70 (90) 97 97.2 04/08/18 00:00 97.1 74 17 127/78 (94) 98 97.1 04/07/18 22:33 138/86 04/07/18 21:35 71 126/83 04/07/18 21:00 Room Air 04/07/18 20:00 98.1 71 20 126/83 (97) 97 98.1 04/07/18 20:00 73 04/07/18 19:30 70 18 Room Air 21 04/07/18 16:00 69 04/07/18 16:00 98.1 79 20 104/65 (78) 97 98.1 04/07/18 13:28 122/71 General Appearance: no apparent distress, alert EENT: PERRL/EOMI, normal ENT inspection, pharynx normal Neck: non-tender, normal alignment, supple, normal inspection Rhythm: NSR Cardiovascular: normal peripheral pulses, normal rate, regular rhythm Respiratory/Chest: chest wall non-tender, lungs clear Abdomen: normal bowel sounds, non tender Extremities: normal range of motion, non-tender 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 Complete 04/06/18 19:08 Rectum VRE Culture - Final NO VANCOMYCIN RESISTANT ENTEROCOCCUS ... Complete 04/06/18 19:08 Rectum - Final NO CARBAPENEM-RESISTANT ENTEROBACTERI... Complete Joshua Zimmer M.D. Apr 08, 2018 12:33
[2018-04-08 16:07] VITALS: BP 130/76
[2018-04-08 20:00] VITALS: BP 144/89
[2018-04-08] MEDS ORDERED: Miralax 17gm pkt ORAL PRN (20:30)
[2018-04-08] MEDS ORDERED: Atorvastatin 20mg tab ORAL SCH (21:00)
[2018-04-09] VITALS: BP 144/85
[2018-04-09 04:00] VITALS: BP 150/94
[2018-04-09] MEDS: HydrALAZINE 50mg tab ORAL SCH ×2 (06:49→14:48)
[2018-04-09 08:09] VITALS: BP 147/94
[2018-04-09 08:19] LABS: BASOPHILS % (AUTO) 1.2 % (0.0-2.0); EOSINOPHILS % (AUTO) 3.6 % (0.0-3.0); HEMATOCRIT 38.8 % (42.0-52.0); HEMOGLOBIN 12.9 G/DL (14.2-18.0); LYMPHOCYTES % (AUTO) 24.5 % (20.0-45.0); MEAN CORPUSCULAR VOLUME 85 FL (80-99); MONOCYTES % (AUTO) 7.2 % (1.0-10.0); NEUTROPHILS % (AUTO) 63.6 % (45.0-75.0); PLATELET COUNT 295 K/UL (150-450); RED BLOOD COUNT 4.56 M/UL (4.70-6.10); RED CELL DISTRIBUTION WIDTH 10.7 % (11.6-14.8); WHITE BLOOD COUNT 6.9 K/UL (4.8-10.8)
[2018-04-09] MEDS: Terazosin 1mg cap ORAL SCH (08:20)
[2018-04-09] MEDS: Lisinopril 20mg tab ORAL SCH (08:20)
[2018-04-09] MEDS: Heparin 5000 units/ml inj SUBQ SCH (08:20)
[2018-04-09] MEDS: Labetalol 200mg tab ORAL SCH (08:23)
[2018-04-09 08:32] LABS: ANION GAP 13 mmol/L (5-15); BLOOD UREA NITROGEN 24 mg/dL (7-18); CALCIUM 8.9 MG/DL (8.5-10.1); CARBON DIOXIDE 23 MMOL/L (21-32); CHLORIDE 105 MMOL/L (98-107); CREATININE 1.3 MG/DL (0.55-1.30); POTASSIUM 3.9 MMOL/L (3.5-5.1); SODIUM 141 MMOL/L (136-145)
--- NOTE | 2018-04-09 09:53 | General Progress Note ---
Assessment/Plan Problem List: (1) Altered mental status ICD Codes: R41.82 - Altered mental status, unspecified SNOMED: 557309987 (2) FTT (failure to thrive) in adult ICD Codes: R62.7 - Adult failure to thrive SNOMED: 882581701 (3) Psychiatric disorder ICD Codes: F99 - Mental disorder, not otherwise specified SNOMED: 87851268, 836950284 (4) History of CVA (cerebrovascular accident) ICD Codes: Z86.73 - Personal history of transient ischemic attack (TIA), and cerebral infarction without residual deficits SNOMED: 713591795 (5) Uncontrolled hypertension ICD Codes: I10 - Essential (primary) hypertension SNOMED: 06882809, 31768569 Status: stable, progressing Assessment/Plan ot pt diet bp bs control cbc bmp am psyc transfer vs dc plan snf if clear by all Subjective Constitutional: Reports: weakness Allergies: Coded Allergies: No Known Allergies (Unverified , 04/06/18) All Systems: reviewed and negative except above Subjective confused in bed Objective Last 24 Hour Vital Signs Date Time Temp Pulse Resp B/P (MAP) Pulse Ox O2 Delivery O2 Flow Rate FiO2 04/09/18 08:23 73 147/94 04/09/18 08:20 147/94 04/09/18 08:20 73 147/94 04/09/18 08:09 97.8 73 18 147/94 (111) 96 97.8 04/09/18 06:49 150/94 04/09/18 04:00 97.5 75 20 150/94 (112) 97 97.5 04/09/18 00:00 97.9 87 18 144/85 (104) 98 97.9 04/08/18 21:38 144/89 04/08/18 21:36 81 144/89 04/08/18 21:00 Room Air 04/08/18 20:00 98.5 81 20 144/89 (107) 96 98.5 04/08/18 19:16 76 20 Room Air 21 04/08/18 16:07 97.6 79 18 130/76 (94) 95 97.6 04/08/18 14:02 130/70 04/08/18 11:40 97.0 74 18 130/70 (90) 97 97.0 04/08/18 11:22 75 20 Room Air 21 Intake and Output 04/08/18 04/09/18 19:00 07:00 Intake Total 840 ml Balance 840 ml Intake Oral 840 ml # Voids 2 3 # Bowel Movements 1 Laboratory Tests 04/09/18 08:05: White Blood Count 6.9, Red Blood Count 4.56L, Hemoglobin 12.9L, Hematocrit 38.8L , Mean Corpuscular Volume 85, Mean Corpuscular Hemoglobin 28.4, Mean Corpuscular Hemoglobin Concent 33.4, Red Cell Distribution Width 10.7L, Platelet Count 295, Mean Platelet Volume 5.6L, Neutrophils (%) (Auto) 63.6, Lymphocytes (%) (Auto) 24.5, Monocytes (%) (Auto) 7.2, Eosinophils (%) (Auto) 3.6H, Basophils (%) (Auto) 1.2, Sodium Level 141, Potassium Level 3.9, Chloride Level 105, Carbon Dioxide Level 23, Anion Gap 13, Blood Urea Nitrogen 24H, Creatinine 1.3, Estimat Glomerular Filtration Rate 58.0, Glucose Level 134H, Calcium Level 8.9 Height (Feet): 5 Height (Inches): 8.00 Weight (Pounds): 160 General Appearance: lethargic, confused EENT: normal ENT inspection Neck: normal alignment Cardiovascular: normal peripheral pulses, normal rate, regular rhythm Respiratory/Chest: chest wall non-tender, lungs clear, normal breath sounds Abdomen: normal bowel sounds, non tender, soft Extremities: normal inspection Edema: no edema noted Arm (L), no edema noted Arm (R), no edema noted Leg (L), no edema noted Leg (R), no edema noted Pedal (L), no edema noted Pedal (R), no edema noted Generalized Neurologic: motor weakness Skin: normal pigmentation, warm/dry Emeka Bond DO Apr 09, 2018 09:53
[2018-04-09 12:04] VITALS: BP 131/72
--- NOTE | 2018-04-09 12:50 | Cardiology Report ---
APPROVED REPORT EXAM: Two-dimensional and M-mode echocardiogram with Doppler and color Doppler. INDICATION LV function M-Mode DIMENSIONS IVSd1.7 (0.7-1.1cm)Left Atrium (MM)4.4 (1.6-4.0cm) LVDd2.4 (3.5-5.6cm)Aortic Root3.6 (2.0-3.7cm) PWd1.7 (0.7-1.1cm)Aortic Cusp Exc.2.1 (1.5-2.0cm) LVDs1.0 (2.5-4.0cm) PWs1.6 cm Technically difficult study due to poor acoustical windows. Normal left ventricular chamber size, systolic function and wall motion to extent visualized. Left ventricular ejection fraction estimated to be 65 %. Moderate left ventricular hypertrophy. Small pericardial effusion along LV lateral side. Left atrial size at upper limits of normal. Right cardiac chamber sizes are within normal limits. Focal aortic valve sclerosis with adequate cusp excursion. Thickened mitral valve leaflets with normal excursion. Mitral annulus and aortic root calcification. Pulmonic valve not well visualized. Normal tricuspid valve structure. IVC at normal size with physiologic collapse. A color flow and spectral Doppler study was performed and revealed: Trace aortic regurgitation. Trace mitral regurgitation. Mitral diastolic velocities suggest reduced left ventricular relaxation c/w mild LV diastolic dysfunction (Grade I ). Trace tricuspid regurgitation. Tricuspid systolic velocities suggests peak right ventricular systolic pressure of 20 mmHg.
[2018-04-09] MEDS ORDERED: ATORVASTATIN CA20 MG ORAL (13:36)
[2018-04-09] MEDS ORDERED: HYDRALAZINE HC100 MG ORAL (13:37)
[2018-04-09] MEDS ORDERED: LISINOPRIL40 MG ORAL (13:37)
[2018-04-09] MEDS ORDERED: NITROSTAT0.4 M2 SL (13:41)
[2018-04-09] MEDS ORDERED: MIRALAX17 G2 ORAL (13:42)
[2018-04-09] MEDS ORDERED: RESTORIL15 MG ORAL (13:42)
[2018-04-09] MEDS ORDERED: PROTONIX40 MG ORAL (13:42)
[2018-04-09 14:48] VITALS: BP 150/99
--- NOTE | 2018-04-10 11:24 | Discharge Summary ---
Discharge Summary Discharge Summary _ DATE OF ADMISSION: 04/06/2018 DATE OF DISCHARGE: 04/09/2018 REASON FOR ADMISSION: 52 years old male with history of CVA with residual hemiplegia , G tube, [facility] for altered level of consciousness. Patient noted to be more agitated and had "exit seeking" behavior. No reported trauma , no injury, no fevers. Upon evaluation vital signs were stable, except blood pressure was severely elevated at 187/100. EKG revealed normal sinus rhythm, no acute ischemic changes. Troponin was negative Chest x-ray revealed no acute cardiopulmonary pathology. CT of the head revealed no acute intracranial pathology , but showed encephalomalacia in the left basal ganglia/calloway radiata, likely related to chronic infarct. Urinalysis revealed no evidence of UTI. No leukocytosis, stable hemoglobin and hematocrit. Stable electrolytes, renal parameters and LFT. In ED it was difficult to control his blood pressure, and subsequently patient was admitted for further management to telemetry floor with diagnoses of hypertensive urgency, altered level of consciousness, history of CVA . CONSULTANTS: information systems security officer pulmonary Dr. Lopez [facility]SE: Patient admitted. Cardiology and pulmonology consults were requested. Blood pressure was eventually controlled with multiply regimen of antihypertensive medication , including beta matthieu, JILLIAN inhibitor, calcium channel matthieu, hydralazine, and terazosin. Lipid panel revealed elevated total cholesterol -238 and elevated LDL -157. Statin was continued. Antiplatelet therapy with aspirin continued. DVT and GI prophylaxis continued. Echocardiogram revealed preserved ejection fraction of 65%, moderate left ventricular hypertrophy, grade 1 diastolic dysfunction, and right ventricular systolic pressure of 20. Troponin 3 was negative. Bowel regimen instituted . Supportive care provided. Pain management addressed as needed . Supplemental oxygen provided as needed to keep pulse oximetry above 92% . Pulmonary toilet was on standby as needed. Pulse oximetry was stable on room air. Patient was working with physical and occupational therapists. Patient tolerated 100% of diet. G-tube was not used at the facility and in the hospital for feeding. Per cna gna evaluation, consider removal of G tube. Patient's dietary intake orally was satisfactory. Patient will eventually need G-tube removal. Patient stabilized and was ready for discharge back to [facility]. Blood pressure stable, mental status back to baseline Patient will need outpatient follow-up with psychiatrist for management of psychiatric disorder. FINAL DIAGNOSES: Hypertensive urgency -resolved Altered level of consciousness Psychiatric disorder Failure to thrive Hyperlipidemia History of CVA G-tube DISCHARGE MEDICATIONS: See Medication Reconciliation list. DISCHARGE INSTRUCTIONS: Patient was discharged to the [facility] facility. Follow up with medical doctor at the facility. I have been assigned to dictate discharge summary for this account. I was not involved in the patient's management. Shakira Taylor NP Apr 10, 2018 11:24
== END 2018-04-09 15:35 | DRG 199 ==
LOC: EDBD 12:15 → EMR 12:47 → 2E 17:10 → EDBEDREQ 17:59 → 4W 04-07 21:50
DX: I16.0 Hypertensive urgency (principal); I69.359 Hemiplegia and hemiparesis following cerebral infarction affecting unspecified side; E11.9 Type 2 diabetes mellitus without complications; R45.1 Restlessness and agitation; R41.82 Altered mental status, unspecified; F99 Mental disorder, not otherwise specified; R62.7 Adult failure to thrive; E78.5 Hyperlipidemia, unspecified; Z43.1 Encounter for attention to gastrostomy
CPT/HCPCS: 36415; 70450; 71045; 80048; 80053; 80061; 81001; 84443; 84484; 85025; 85610; 85730; 86140; 87081; 93005; 93306; 94664; 99285